=== PATIENT | male | born 1955 | race Caucasian/White ===

== ENCOUNTER → 2020-05-30 | Outpatient (CLI) | payer OTHER ==
--- NOTE | 2020-06-01 04:20 | RAD ---
Left hip AP lateral x-rays HISTORY: Left hip pain, disability. FINDINGS: No fracture. No dislocation. Osteoarthritis with joint space narrowing and prominent lateral acetabulum bone spur. Soft tissues unremarkable. IMPRESSION: No acute osseous injury. Osteoarthritis. Lumbar spine AP lateral x-rays 3 views HISTORY: Low back pain. Disability. FINDINGS: Densities within sigmoid colon diverticuli could be retained contrast. Lumbar vertebral body height and alignment intact. No fracture evident. Bridging anterior lower thoracic disc osteophytes. There are also anterior lumbar discontiguous disc osteophytes. Mild posterior disc space narrowing at the lower thoracic disc spaces as well as at the upper lumbar disc spaces. There is severe disc height loss and bulky disc osteophyte L5-S1 and facet spurring at L4-L5 and L5-S1. Abdominal aortic calcified plaque is present. IMPRESSION: No acute osseous injury. Sequela of lower thoracic spine and lumbar spine disc disease and lower lumbar facet arthritis as described above. Electronically signed by: Jonh Pozo MD (06/01/2020 4:17 AM) [email or web address]
== END | disposition home or self-care (01) ==
LOC: RAD 11:17
PROVIDERS: ATTEND Surgery
DX: M51.36 Other intervertebral disc degeneration, lumbar region (principal); M47.816 Spondylosis without myelopathy or radiculopathy, lumbar region; M16.12 Unilateral primary osteoarthritis, left hip; M46.07 Spinal enthesopathy, lumbosacral region; M48.04 Spinal stenosis, thoracic region; M25.752 Osteophyte, left hip; K57.30 Diverticulosis of large intestine without perforation or abscess without bleeding
CPT/HCPCS: 72100; 73501